=== PATIENT | male | born 1945 | race Caucasian/White ===

== ENCOUNTER → 2023-04-30 | Outpatient (CLI) | payer MEDICARE, SELFPAY ==
[2023-04-30 18:02] LABS: Vitamin B12 312 pg/mL (211-911)
[2023-04-30 18:48] LABS: Thyroid Stim Hormone (TSH) 1.38 uIU/mL (0.358-3.74)
[2023-05-07 03:07] LABS: Free Kappa Light Chains 45.8 mg/L (3.3-19.4); Free Lambda Light Chains 26.5 mg/L (5.7-26.3); Lamotrigine (Lamictal) Level 2.8 ug/mL (2.0-20.0); Vitamin B1, Thiamine 129.5 nmol/L (66.5-200.0)
== END | disposition home or self-care (01) ==
LOC: MTLAB 14:00
PROVIDERS: PCP Physician Assistant; Referring Provider Psychiatry & Neurology Neurology; Visit Provider Psychiatry & Neurology Neurology
DX: G62.9 Polyneuropathy, unspecified (principal); I10 Essential (primary) hypertension; G50.0 Trigeminal neuralgia
CPT/HCPCS: 36415; 82140; 82542; 82607; 82746; 83883; 84425; 84443